=== PATIENT | male | born 1985 | race Hispanic/Latino ===

== ENCOUNTER 2016-09-09 10:46 | Emergency (ER) | payer BC ==
[2016-09-09 11:03] VITALS: BP 113/78
[2016-09-09 11:16] LABS: Mean Corpuscular HGB Conc 36 % (32-34); Mean Corpuscular Hemoglobin 32 pg (28-32); Mean Corpuscular Volume 89 fl (84-94); Platelet Count 429 K/mm3 (140-440); Red Cell Distribution Width 13.5 % (13.2-15.2)
[2016-09-09 11:17] LABS: Hematocrit 51.4 % (35.5-45.6); Hemoglobin 18.3 gm/dl (11.8-15.2); White Blood Count 21.6 K/mm3 (4.5-11.0)
[2016-09-09 11:34] LABS: BUN/Creatinine Ratio 5.89; Calcium 11.2 mg/dL (8.4-10.2); Chloride 85.2 mmol/L (98-107); Potassium 3.6 mmol/L (3.6-5.0)
[2016-09-09 12:33] LABS: Basophils % (Manual) 0 % (0.0-1.8); Blastocytes % (Manual) 0 %; Eosinophils % (Manual) 0 % (0.0-4.3)
[2016-09-09 12:34] LABS: Diff Status Complete; Platelet Estimate Consistent w Auto; RBC Morphology Normal
[2016-09-09 13:59] LABS: Bacteria,Urine 1+ /HPF (Negative); Bilirubin,Urine NEG (Negative); Blood,Urine SM (Negative); Ketones,Urine NEG (Negative); Leukocyte Esterase,Urine NEG (Negative); Mucus,Urine FEW /HPF; Nitrite,Urine NEG (Negative); Urobilinogen,Urine < 2.0 mg/dL (<2.0)
== END 2016-09-09 18:00 | disposition left against medical advice (07) ==
LOC: ED 10:46
DX: E86.0 Dehydration (principal); Z53.21 Procedure and treatment not carried out due to patient leaving prior to being seen by health care provider
CPT/HCPCS: 36415; 80048; 81001; 85007; 85025